=== PATIENT | male | born 1950 | race Two or more races ===

== ENCOUNTER 2016-06-15 15:41 | Inpatient (IN) | payer BC ==
[2016-06-15] MEDS ORDERED: BACTRIM DS TAB1 EAC2 PO (15:48)
[2016-06-15] MEDS ORDERED: NORCO 5-325 TA1 EACH PO (15:49)
[2016-06-15 17:39] LABS: BASO % 0.1 % (0-2); EOS % 0.6 % (0-7); EOSINOPHIL ABSOLUTE COUNT 0.1 tho/cmm (0.0-0.7); HCT-HEMATOCRIT 37.7 % (36.0-53.5); HGB-HEMOGLOBIN 12.8 gm/dl (13.5-17.0); IMMATURE GRANULOCYTES ABSOLUTE 0.03 tho/cmm (0-0.03); IMMATURE GRANULOCYTES PERCENT 0.2 % (0-0.3); LYMPH % 8.3 % (20-45); LYMPH ABSOLUTE COUNT 1.2 tho/cmm (0.8-4.5); MCH (MEAN CORPUSCULAR HGB) 30.5 pg (28.0-32.0); MEAN PLATELET VOLUME 10.7 cmc (9.4-12.4); MONO % 4.1 % (0-12); MONOCYTE ABSOLUTE COUNT 0.6 tho/cmm (0.0-1.2); NEUTROPHIL ABSOLUTE COUNT 12.6 tho/cmm (1.6-8.0); NEUTROPHIL-AUTOMATED 12.6 tho/cmm (1.6-8.0); NEUTROPHILS % 86.7 % (40-80); PLATELET COUNT 188 tho/cmm (150-450); RED BLOOD COUNT 4.19 mil/cmm (4.40-5.70); RED CELL DISTRIBUTION WIDTH 13.5 % (12.4-16.4); WHITE BLOOD COUNT 14.5 tho/cmm (4.0-10.0)
[2016-06-15 18:04] LABS: INR 1.1 INR (0.9-1.1)
[2016-06-15 18:19] LABS: ALB/GLOB RATIO 0.9 (0.8-2.0); ALBUMIN 2.9 g/dl (3.5-5.0); ALKALINE PHOSPHATASE 71 U/L (33-138); ALT/SGPT 27 U/L (12-78); ANION GAP 10 mmol/L (0-20); AST/SGOT 15 U/L (10-40); BILIRUBIN,TOTAL 0.2 mg/dl (0.0-1.5); BLOOD UREA NITROGEN 17 mg/dl (6-24); CARBON DIOXIDE-VENOUS 28 mmol/L (22-32); CHLORIDE 107 mmol/l (96-110); CREATININE 0.95 mg/dl (0.60-1.30); GLUCOSE 134 mg/dL (70-110); POTASSIUM 4.5 mmol/L (3.7-5.1); SODIUM 140 mmol/L (135-145); eGFR VALUE FOR BLACK >90 mL/Min
[2016-06-16 05:29] LABS: HCT-HEMATOCRIT 39.6 % (36.0-53.5); HGB-HEMOGLOBIN 13.5 gm/dl (13.5-17.0); MCV (MEAN CELL VOLUME) 89.6 fl (82.0-96.0); RED CELL DISTRIBUTION WIDTH 13.5 % (12.4-16.4)
[2016-06-18 06:28] LABS: HGB-HEMOGLOBIN 13.1 gm/dl (13.5-17.0)
--- NOTE | 2016-06-18 14:43 | NUR ---
VN ROUNDING-DEFERRED PATIENT IS SLEEPING
--- NOTE | 2016-06-19 20:50 | NUR ---
VN ROUNDING NOTE-PATIENT LAYING IN BED COMFORTABLY WITH SON (INTERPRETOR) AND AND BEDSIDE. PATIENT STATES PAIN IS STAYING CONTROLLED AND HIS MUSTACHE DRESSING IS CDI. PATIENT OR FAMILY DOES NOT HAVE ANY OTHER QUESTIONS OR CONCERNS AND WE HOPE THAT HE GETS TO BE DISCHARGED IN THE NEXT DAY. CHART REVIEWED.
[2016-06-20] MEDS ORDERED: KEFLEX500 M4 PO (11:28)
[2016-06-20] MEDS ORDERED: OCEAN104 ML (11:28)
[2016-06-20] MEDS ORDERED: TYLENOL EXTRA500 M1 PO (11:30)
== END 2016-06-20 12:25 | DRG 983 ==
LOC: SRG 15:41 → SHSA 15:43 → PACU 17:41 → 5WD 19:20 → ORE 06-19 12:55 → PACU 06-19 13:42 → 5WD 06-19 14:25
PROVIDERS: ADMIT Otolaryngology
PROC: 0W3Q8ZZ Control Bleeding in Respiratory Tract, Via Natural or Artificial Opening Endoscopic (ICD-10-PCS; principal; 2016-06-15)
PROC: 2Y51X5Z Removal of Nasal Packing Material (ICD-10-PCS; 2016-06-15)
PROC: 0W3Q8ZZ Control Bleeding in Respiratory Tract, Via Natural or Artificial Opening Endoscopic (ICD-10-PCS; 2016-06-19)
PROC: 2Y51X5Z Removal of Nasal Packing Material (ICD-10-PCS; 2016-06-19)
DX: R04.0 Epistaxis (principal); J32.9 Chronic sinusitis, unspecified; J45.909 Unspecified asthma, uncomplicated; K21.9 Gastro-esophageal reflux disease without esophagitis; Z87.891 Personal history of nicotine dependence; R06.83 Snoring
CPT/HCPCS: J0696; J2405; J3010